=== PATIENT | female | born 1935 | race Caucasian/White ===

== ENCOUNTER 2018-01-22 20:31 | Emergency (ER) | payer MEDICARE, BC ==
[~2018-01-22] VITALS: Ht 157.5 cm; Wt 45.0 kg
[2018-01-22] MEDS ORDERED: DOXY100C43 PO (21:05)
[2018-01-22] MEDS ORDERED: ASPI-1265 PO (21:05)
[2018-01-22] MEDS ORDERED: FISH12002 PO (21:05)
[2018-01-22] MEDS ORDERED: OCUVITE PO (21:05)
[2018-01-22] MEDS ORDERED: BISO5TAB PO (21:05)
[2018-01-22] MEDS ORDERED: ALLO100T PO (21:05)
[2018-01-22] MEDS ORDERED: ETAN50DI SUBCUT (21:05)
[2018-01-22] MEDS ORDERED: CLOP75TA35 PO (21:05)
[2018-01-22] MEDS ORDERED: SYN0.088T PO (21:05)
[2018-01-22 21:49] LABS: BASOPHILS % (AUTO) 0.1 % (0-1); EOSINOPHILS # (AUTO) 0.1 X10'3 (0-0.9); EOSINOPHILS % (AUTO) 0.6 % (0-6); HEMATOCRIT 35.3 % (35.0-45.0); HEMOGLOBIN 12.1 g/dl (12.0-16.0); LYMPHOCYTES # (AUTO) 1.9 X10'3 (1.1-4.8); MEAN CORPUSCULAR HGB CONC 34.3 % (33.0-36.5); MEAN CORPUSCULAR VOLUME 99.1 FL (78-98); MEAN PLATELET VOLUME 6.8 FL (7.4-10.4); MONOCYTES # (AUTO) 0.7 X10'3 (0-0.9); MONOCYTES % (AUTO) 6.9 % (2-12); NEUTROPHILS # (AUTO) 8.2 X10'3 (1.8-7.7); NEUTROPHILS % (AUTO) 75.4 % (42-75); PLATELET COUNT 276 X10'3 (140-440); RED BLOOD COUNT 3.56 X10'6 (4.20-5.60); RED CELL DISTRIBUTION WIDTH 15.8 % (11.5-14.5); WHITE BLOOD COUNT 10.9 X10'3 (4.5-11.0)
[2018-01-22 22:04] LABS: ALANINE AMINOTRANSFERASE 23 U/L (12-78); ALBUMIN 2.7 G/DL (3.4-5.0); ALBUMIN/GLOBULIN RATIO 0.6 (1.1-1.5); ALKALINE PHOSPHATASE 57 IU/L (46-116); ANION GAP 10 (8-16); ASPARTATE AMINO TRANSFERASE 25 U/L (10-37); BILIRUBIN,TOTAL 0.8 MG/DL (0.1-1.0); BLOOD UREA NITROGEN 26 MG/DL (7-18); BUN/CREATININE RATIO 19.5 (6.6-38.0); CALCIUM 9.9 MG/DL (8.5-10.1); CHLORIDE 95 MMOL/L (99-107); CREATINE KINASE 39 U/L (26-192); CREATININE 1.33 MG/DL (0.40-0.90); MAGNESIUM 1.8 MG/DL (1.5-2.4); POTASSIUM 4.4 MMOL/L (3.5-5.1); SODIUM 130 MMOL/L (135-145); TOTAL CARBON DIOXIDE 25.4 MMOL/L (24-32); TOTAL PROTEIN 7.2 G/DL (6.4-8.2); eGFR 38 ML/MIN
[2018-01-22 22:09] LABS: GLUCOSE 129 MG/DL (70-104)
[2018-01-22] MEDS ORDERED: traMADol 50MG tablet PO ONE (22:30)
[2018-01-22] MEDS ORDERED: ondansetron/PF 4mg/2ml inj IV ONE (22:30)
[2018-01-22] MEDS ORDERED: normal saline 1000ML IV soln IVB ONE (22:40)
[2018-01-22 23:37] LABS: CLARITY,URINE SLIGHTLY CLOUDY (Clear); COLOR,URINE YELLOW (Yellow); GLUCOSE, URINE NEGATIVE (Neg); KETONES,URINE NEGATIVE (Neg); LEUKOCYTE ESTERASE ,URINE SMALL (Neg); NITRITES, URINE NEGATIVE (Neg); OCCULT BLOOD,URINE LARGE (Neg); PH,URINE 6.5 (4.8-8.0); PROTEIN,URINE NEGATIVE (Neg); UA COLLECTION TYPE STRAIGHT CATH; UROBILINOGEN,URINE 0.2 E.U/dL (0.2-1.0)
[2018-01-22 23:49] LABS: RBC,URINE 50-100 /HPF (0-2)
[2018-01-22 23:50] LABS: BACTERIA,URINE 3+ /HPF (Neg); SQUAMOUS EPITHELIAL CELL,UR FEW /LPF (FEW); WBC CLUMPS,URINE FEW /HPF (NEGATIVE)
[2018-01-23] MEDS ORDERED: TETanus/Pertussis (Acell)/Diphther VAC/PF (Tdap-Adult) 0.5ml syringe IM ONE (00:10)
[2018-01-23] MEDS ORDERED: cephalexin 250mg capsule PO ONE (00:10)
[2018-01-23] MEDS ORDERED: nitrofuran/nitrofuran macrocrysal 100 MG capsule PO ONE (00:10)
[2018-01-23] MEDS ORDERED: TRAM50TA2 PO (00:15)
[2018-01-23] MEDS ORDERED: ONDA4TAB12 PO (00:15)
[2018-01-23] MEDS ORDERED: NITR100C6 PO (00:15)
[2018-01-23 00:36] VITALS: BP 137/74
== END 2018-01-23 00:47 | disposition home or self-care (01) ==
LOC: ER 20:32
DX: S42.212A Unspecified displaced fracture of surgical neck of left humerus, initial encounter for closed fracture (principal); S00.03XA Contusion of scalp, initial encounter; N39.0 Urinary tract infection, site not specified; Z88.0 Allergy status to penicillin; Z79.82 Long term (current) use of aspirin; Z79.899 Other long term (current) drug therapy; Z95.0 Presence of cardiac pacemaker; W18.30XA Fall on same level, unspecified, initial encounter; Y93.89 Activity, other specified; Y92.89 Other specified places as the place of occurrence of the external cause; Y99.8 Other external cause status
CPT/HCPCS: 36415; 70450; 71045; 72125; 73030; 73080; 80053; 81001; 82550; 83735; 85025; 87088; 90471; 90715; 93005; 96374; 99285; J2405; J7030; 87077; 87186